=== PATIENT | male | born 1945 | race Caucasian/White ===

== ENCOUNTER 2016-07-06 07:40 | Outpatient (CLI) | payer MEDICARE, OTHER | END 2016-07-06 07:41 | disposition home or self-care (01) | DX: Z00.00 Encounter for general adult medical examination without abnormal findings (principal); R53.83 Other fatigue; E03.9 Hypothyroidism, unspecified; I10 Essential (primary) hypertension ==

== ENCOUNTER 2017-02-12 12:00 | Outpatient (CLI) | payer MEDICARE, OTHER ==
[2017-02-12 19:08] LABS: ALBUMIN/GLOBULIN RATIO 1.3 (1.0-2.2); BILIRUBIN,TOTAL 0.7 mg/dL (0.2-1.0); BUN - BLOOD UREA NITROGEN 12 mg/dL (6-20); CALCIUM 9.2 mg/dL (8.5-10.3); CARBON DIOXIDE - CO2 27 mmol/L (21-32); CHLORIDE 101 mmol/L (101-111); CHOL/HDL RATIO 2.2 (<5.0); CHOLESTEROL 166 mg/dL; CREATININE 0.9 mg/dL (0.6-1.2); GFR - MDRD 83 (>89); GLUCOSE 91 mg/dL (70-100); HDL CHOLESTEROL 77 mg/dL; POTASSIUM 4.4 mmol/L (3.5-5.0); SODIUM 140 mmol/L (135-145); TOTAL PROTEIN 7.5 g/dL (6.7-8.2); TRIGLYCERIDES 64 mg/dL; VLDL CHOLESTEROL 13 mg/dL
== END 2017-02-12 12:01 | disposition home or self-care (01) ==
LOC: LAB.F 12:00
PROVIDERS: ATTEND Family Medicine
DX: I25.10 Atherosclerotic heart disease of native coronary artery without angina pectoris (principal); I10 Essential (primary) hypertension; E78.01 Familial hypercholesterolemia
CPT/HCPCS: 36415; 80053; 80061

== ENCOUNTER 2017-03-01 10:07 | Outpatient (CLI) | payer MEDICARE, OTHER ==
[2017-03-01 18:40] LABS: CREATININE 0.9 mg/dL (0.6-1.2); POTASSIUM 4.4 mmol/L (3.5-5.0)
== END 2017-03-01 10:08 | disposition home or self-care (01) ==
LOC: LAB.F 10:07
PROVIDERS: ATTEND Internal Medicine Cardiovascular Disease
DX: I10 Essential (primary) hypertension (principal)
CPT/HCPCS: 36415; 80048

== ENCOUNTER 2017-09-26 14:39 | Outpatient (CLI) | payer MEDICARE, OTHER ==
[2017-09-26 17:46] LABS: CREATININE 0.9 mg/dL (0.6-1.2)
[2017-09-26 17:48] LABS: CALCIUM 8.7 mg/dL (8.5-10.3)
== END 2017-09-26 14:40 | disposition home or self-care (01) ==
LOC: LAB.F 14:39
PROVIDERS: ATTEND Internal Medicine Cardiovascular Disease
DX: I25.110 Atherosclerotic heart disease of native coronary artery with unstable angina pectoris (principal)
CPT/HCPCS: 36415; 80048

== ENCOUNTER 2017-11-15 10:10 | Outpatient (CLI) | payer MEDICARE, OTHER ==
[2017-11-15 18:21] LABS: CHOL/HDL RATIO 2.8 (<5.0); CHOLESTEROL 165 mg/dL; HDL CHOLESTEROL 59 mg/dL; LDL CHOLESTEROL,CALCULATED 86 mg/dL; LDL/HDL RATIO 1.5 (<3.6); VLDL CHOLESTEROL 20 mg/dL
== END 2017-11-15 10:11 | disposition home or self-care (01) ==
LOC: LAB.F 10:10
PROVIDERS: ATTEND Internal Medicine Cardiovascular Disease
DX: E78.01 Familial hypercholesterolemia (principal)
CPT/HCPCS: 36415; 80061; 83721

== ENCOUNTER 2020-06-08 14:10 | Outpatient (CLI) | payer MEDICARE, OTHER ==
--- NOTE | 2020-06-08 16:51 | XRAY Report ---
PROCEDURE: Shoulder 3 View RT INDICATIONS: RT SHOULDER PX TECHNIQUE: 3 views of the shoulder were acquired. COMPARISON: None. FINDINGS: Bones: No acute fractures or dislocations. Degenerative changes of the right glenohumeral and acrom ioclavicular joints. Coracoclavicular and acromioclavicular intervals are maintained. No suspicious b christian lesions. Visualized ribs appear intact. Soft tissues: No suspicious soft tissue calcifications. IMPRESSION: Right shoulder without acute fracture or dislocation. Degenerative changes of the right acromioclavicular and glenohumeral joints. If there is persistent clinical concern for occult fracture, consider further evaluation with advance d cross-sectional imaging such as CT or MRI. Reviewed by: Raul Ojeda MD on 06/08/2020 4:50 PM PDT Approved by: Raul Ojeda MD on 06/08/2020 4:50 PM PDT Station ID: [id number]
== END 2020-06-08 14:11 | disposition home or self-care (01) ==
LOC: DI.S 14:10
PROVIDERS: ATTEND Nurse Practitioner Family
DX: M19.011 Primary osteoarthritis, right shoulder (principal)

== ENCOUNTER 2020-08-07 10:07 | Outpatient (CLI) | payer MEDICARE, OTHER ==
--- NOTE | 2020-08-07 20:12 | CT Report ---
PROCEDURE: UPPER EXTREMITY WO - RT INDICATIONS: PAIN OF RIGHT SHOULDER JOINT TECHNIQUE: Noncontrast 3 mm axial sections acquired of the right shoulder, with coronal and sagittal reformats. COMPARISON: Shoulder plain film, 06/08/2020 FINDINGS: Image quality: Excellent. Bones: No fractures or dislocations are seen. Degenerative changes are seen in the right shoulder, w ith minimal joint space narrowing with associated spurring of the humeral head. Moderate subacromial spurring can be seen. No suspicious lytic or blastic lesions are seen. Degenerative changes are seen elsewhere, including within the visualized cervical spine and thoracic spine. Sternotomy changes are noted. Soft tissues: The visualized right lung is within normal limits. No enlarged axillary lymph nodes ar e seen. Mediastinal clips are seen. IMPRESSION: Right shoulder degenerative changes are seen. If not contraindicated, please consider a dedicated right shoulder MRI for further evaluation. Incidental note is made of: CABG Reviewed by: Osmin Parker MD on 08/07/2020 7:10 PM IVÁN Approved by: Osmin Parker MD on 08/07/2020 7:10 PM IVÁN Station ID: [id number]
== END 2020-08-07 10:08 | disposition home or self-care (01) ==
LOC: DI 10:07
PROVIDERS: ATTEND Nurse Practitioner Family
DX: M19.011 Primary osteoarthritis, right shoulder (principal)

== ENCOUNTER 2020-11-23 11:24 | Outpatient (CLI) | payer MEDICARE, OTHER ==
--- NOTE | 2020-11-23 16:07 | XRAY Report ---
PROCEDURE: Hand 3 View BILAT INDICATIONS: HAND PAIN TECHNIQUE: 3 views of the hand(s) acquired. COMPARISON: None FINDINGS: Bones: No fractures or dislocations. No suspicious bony lesions. There is diffuse appearance of moderate IP degenerative narrowing bilaterally. There is moderate to s evere left and moderate right first CMC degenerative narrowing. Minimal scattered periarticular osteo phytes are present. There are scattered areas of subchondral lucency suspected to represent subchondr al cysts. Radiocarpal narrowing is noted bilaterally. Soft tissues: No suspicious soft tissue calcif ications. IMPRESSION: Bilateral arthritic changes as above. Reviewed by: Charu Raphael MD on 11/23/2020 4:06 PM PDT Approved by: Charu Raphael MD on 11/23/2020 4:06 PM PDT Station ID: [id number]
== END 2020-11-23 11:25 | disposition home or self-care (01) ==
LOC: DI.S 11:24
PROVIDERS: ATTEND Internal Medicine
DX: M19.042 Primary osteoarthritis, left hand (principal); M19.041 Primary osteoarthritis, right hand

== ENCOUNTER 2021-02-18 10:51 | Outpatient (CLI) | payer MEDICARE, OTHER ==
--- NOTE | 2021-02-18 13:27 | XRAY Report ---
PROCEDURE: Shoulder 3 View RT INDICATIONS: INJURY OF TENDON OF THE ROTATOR CUFF OF SHOULDER-R TECHNIQUE: 3 views of the shoulder were acquired. COMPARISON: None. FINDINGS: Mild glenohumeral joint space narrowing. Moderate degenerative changes of the acromioclavicular joint . A mildly high riding humeral head may indicate rotator cuff atrophy due to chronic tear. There is n o fracture or dislocation. No suspicious lytic or blastic osseous lesion. Included portions of the ri ght lung are clear. Regional soft tissues unremarkable. IMPRESSION: Moderate acromioclavicular degenerative changes. Mild glenohumeral degenerative changes. Mildly high riding humeral head which may indicate rotator cuff tear. Reviewed by: Isaac Larson MD on 02/18/2021 1:26 PM PST Approved by: Isaac Larson MD on 02/18/2021 1:26 PM [facility] Station ID: [id number]
== END 2021-02-18 10:52 | disposition home or self-care (01) ==
LOC: DI.S 10:51
PROVIDERS: ATTEND Internal Medicine
DX: M19.011 Primary osteoarthritis, right shoulder (principal)

== ENCOUNTER 2022-09-01 19:22 | Outpatient (CLI) | payer MEDICARE, OTHER | END 2022-09-01 19:23 | disposition critical access hospital (66) | LOC: EMS 19:22 | DX: S06.9X1A Unspecified intracranial injury with loss of consciousness of 30 minutes or less, initial encounter (principal); R51.9 Headache, unspecified; S01.511A Laceration without foreign body of lip, initial encounter; W01.0XXA Fall on same level from slipping, tripping and stumbling without subsequent striking against object, initial encounter; Y92.480 Sidewalk as the place of occurrence of the external cause | CPT/HCPCS: A0425; A0429 ==

== ENCOUNTER 2022-09-01 19:31 | Emergency (ER) | payer MEDICARE, OTHER ==
[2022-09-01] MEDS ORDERED: BUFFERED LIDOCAINE 10 ML SYRINGE SUBQ STA (19:38)
[2022-09-01] MEDS ORDERED: TETANUS/DIPHTHERIA/PERTUSSIS 0.5 ML SYRINGE IM ONE (19:39)
--- NOTE | 2022-09-01 19:40 | ED Physician Documentation ---
PD HPI HEAD INJURY - Chief complaint Chief Complaint: Trauma Hd/Nk - History obtained from History obtained from: Patient, EMS - Additional information Additional information: 76-year-old gentleman with history of dementia and CABG presents after a ground- level fall. He is a poor historian due to the dementia. Reportedly had a trip and fall. He does smell of alcohol. He does not remember the accident. PD PAST MEDICAL HISTORY - Past Medical History Cardiovascular: Hypertension, High cholesterol Musculoskeletal: Gout - Past Surgical History Past Surgical History: No - Present Medications Home Medications: Ambulatory Orders Medication Instructions Recorded Confirmed Aspirin [Aspir 81] 162 mg PO DAILY 12/19/13 12/19/13 Atenolol 50 mg PO DAILY 12/19/13 12/19/13 Colchicine [Colcrys] PRN 12/19/13 12/19/13 HYDROcod/ACETAM 5/325 [Vicodin 1 - 2 ea PO Q6H PRN #15 tablet 12/19/13 5/325] Ranitidine HCl 75 mg PO DAILY 12/19/13 12/19/13 Rosuvastatin Calcium [Crestor] 40 mg PO DAILY 12/19/13 12/19/13 - Allergies Allergies/Adverse Reactions: Allergies Allergy/AdvReac Type Severity Reaction Status Date / Time No Known Drug Allergies Allergy Verified 09/01/22 19:38 - Social History Does the pt smoke?: No Smoking Status: Never smoker Does the pt drink ETOH?: Yes Does the pt have substance abuse?: No - Immunizations Immunizations are current?: Yes - POLST Patient has POLST: No PD ED PE NORMAL - Vitals Vital signs reviewed: Yes - General General: No acute distress, Other (He is alert and oriented to person and place but not time or events) - HEENT HEENT: PERRL, EOMI, Other (There is a laceration in the right upper lip not crossing the vermilion border.) - Neck Neck: No bony TTP (But maintained in a c-collar pending imaging) - Cardiac Cardiac: RRR, No murmur - Respiratory Respiratory: No respiratory distress, Clear bilaterally - Abdomen Abdomen: Normal bowel sounds, Soft, Non tender - Back Back: No CVA TTP - Derm Derm: Normal color, Warm and dry - Extremities Extremities: Other (Small shallow scrapes to the dorsum of the right hand. There is a larger scrape on the posterolateral right elbow with some tenderness. No limited range of motion.) - Neuro Eye Opening: Spontaneous Motor: Obeys Commands Verbal: Confused GCS Score: 14 Results - Vitals Vitals: Vital Signs - 24 hr 09/01/22 09/01/22 09/01/22 19:35 19:56 21:31 Temperature 36.6 C 37 C Heart Rate 78 77 Respiratory 18 22 20 Rate Blood Pressure 117/75 117/75 117/72 O2 Saturation 97 97 Oxygen O2 Source Room air - EKG (time done) 1933 EKG releavant findings:: EKG personally interpreted by author of this note. Relevant findings are: Rate: Rate (enter#) (77) Rhythm: NSR [place]: Normal Intervals: Normal NM QRS: Normal Ischemia: Normal ST segments - Labs Labs: Laboratory Tests 09/01/22 09/01/22 09/01/22 19:50 19:50 19:50 WBC 7.7 RBC 3.52 L Hgb 12.2 L Hct 35.9 L MCV 102.0 H MCH 34.7 H MCHC 34.0 RDW 12.6 Plt Count 199 MPV 9.0 Neut # (Auto) 3.1 Lymph # (Auto) 3.7 H Sharp # (Auto) 0.7 Eos # (Auto) 0.1 Baso # (Auto) 0.1 Absolute Nucleated RBC 0.00 Nucleated RBC % 0.0 PT 10.7 INR 1.0 Sodium 135 Potassium 4.0 Chloride 100 L Carbon Dioxide 26 Anion Gap 9.0 BUN 10 Creatinine 0.8 Estimated GFR (MDRD) 94 Glucose 102 H Calcium 8.8 Total Bilirubin 0.3 AST 27 ALT 14 Alkaline Phosphatase 36 L Total Protein 7.2 Albumin 3.9 Globulin 3.3 Albumin/Globulin Ratio 1.2 Ethyl Alcohol 227.0 - Rads (name of study) CTH/Cspine Relevant Findings:: Final report received (CT of the head and cervical spine are without serious acute traumatic injuries. He does have degenerative changes in the neck and a right periorbital scalp hematoma.), EMP independent interpretation of test CT of the facial bones is without fracture. Relevant Findings:: Final report received, EMP independent interpretation of test X-ray of the right elbow demonstrates a hairline fracture of the distal humerus Relevant Findings:: Final report received, EMP independent interpretation of test Procedures - Laceration (location) R upper lip Length in cm: 1 Wound type: Stellate Anesthesia: Lidocaine 1%, With bicarb Wound preparation: Irrigated copiously NS Deep layer closure: Vicryl (3-0 single buried) Other: Tetanus booster given - Splint (location) - Minor RUE Splint applied by: Physician Type of splint: Fiberglass, Long arm, Posterior Other: Patient tolerated well, No complications, Neurovascular intact, Sling provided PD Medical Decision Making - ED course Complexity details: reviewed results (Labs reviewed and CBC is notable for mild anemia. Prior values from 6 years ago, he is dropped about 1.4 g. INR normal. CMP unremarkable. Blood alcohol 227 consistent with intoxication.) ED course: 76yo male after GLF. + EtOH, (sober) at [facility]. Updated with results. RUE posterior splint/sling and ortho f/u Departure - Departure Disposition: Home, Self Care Clinical Impression: Ground-level fall Alcohol intoxication Qualifiers: Complication of substance-induced condition: uncomplicated Qualified Code(s): F10.920 - Alcohol use, unspecified with intoxication, uncomplicated Facial abrasion Qualifiers: Encounter type: initial encounter Qualified Code(s): S00.81XA - Abrasion of other part of head, initial encounter Lip laceration Qualifiers: Encounter type: initial encounter Qualified Code(s): S01.511A - Laceration without foreign body of lip, initial encounter Abrasion of right elbow Qualifiers: Encounter type: initial encounter Qualified Code(s): S50.311A - Abrasion of right elbow, initial encounter Humerus distal fracture Qualifiers: Encounter type: initial encounter Fracture type: closed Condition: Good Record reviewed to determine appropriate education?: Yes Instructions: ED Fx Upper Ext, ED Laceration Mouth Follow-Up: Orthopedic Care [Provider Group] - Within 1 week Comments: Jared was seen tonight after a ground-level fall while intoxicated. CAT scan of the head, cervical spine, and facial bones demonstrates no fractures or concerning head injury there. He does have a distal humerus fracture on the right. Keep the splint and sling in place and dry until you follow-up with the orthopedist. Call Sunday for next available appointment. Avoid alcohol, his blood alcohol level was 227 here. 80 would be the cutoff for driving for reference. For the abrasions, soap and water is fine and then keep them greasy with Vaseline ointment. Please return tomorrow for reevaluation if there are any concerns noting that he is intoxicated now so missed injuries are a possibility. He should stay with a sober individual tonight and not drive for the next 24 hours. Discharge Date/Time: 09/01/22 21:32
[2022-09-01 19:58] LABS: BASOPHILS # (AUTO) 0.1 10^3/uL (0.0-0.1); BASOPHILS % (AUTO) 0.8 %; EOSINOPHILS # (AUTO) 0.1 10^3/uL (0.0-0.7); EOSINOPHILS % (AUTO) 1.4 %; HCT - HEMATOCRIT 35.9 % (42.0-52.0); HGB - HEMOGLOBIN 12.2 g/dL (14.0-18.0); LYMPHOCYTES # (AUTO) 3.7 10^3/uL (1.5-3.5); LYMPHOCYTES % (AUTO) 48.1 %; MEAN CORPUSCULAR HEMOGLOBIN 34.7 pg (27.0-31.0); MONOCYTES # (AUTO) 0.7 10^3/uL (0.0-1.0); MONOCYTES % (AUTO) 9.1 %; NEUTROPHILS # (AUTO) 3.1 10^3/uL (1.5-6.6); NEUTROPHILS % (AUTO) 40.3 %; PLT - PLATELET COUNT 199 10^3/uL (130-450); RED BLOOD COUNT 3.52 10^6/uL (4.70-6.10); RED CELL DISTRIBUTION WIDTH 12.6 % (12.0-15.0); WHITE BLOOD COUNT 7.7 x10^3/uL (4.8-10.8)
[2022-09-01 20:06] LABS: PT - PROTHROMBIN TIME 10.7 secs (9.9-12.6)
[2022-09-01 20:08] LABS: ALBUMIN 3.9 g/dL (3.2-5.5); ALBUMIN/GLOBULIN RATIO 1.2 (1.0-2.2); BILIRUBIN,TOTAL 0.3 mg/dL (0.2-1.0); CALCIUM 8.8 mg/dL (8.5-10.3); CREATININE 0.8 mg/dL (0.6-1.2); TOTAL PROTEIN 7.2 g/dL (6.7-8.2)
[2022-09-01] MEDS ORDERED: KETOROLAC 15 MG/ML VIAL IVP STA (20:19)
--- NOTE | 2022-09-01 20:39 | CT Report ---
PROCEDURE: CERVICAL SPINE WO INDICATIONS: Fall with head/face inj TECHNIQUE: Noncontrast 3 mm thick sections acquired from the skull base to the T4 level. Sagittal and coronal r eformats were then constructed. For radiation dose reduction, the following was used: automated exp osure control, adjustment of mA and/or kV according to patient size. COMPARISON: Correlation is made with the accompanying CT examinations. FINDINGS: Image quality: Excellent. Bones: No fractures or dislocations. Visualized superior ribs are intact. Moderate disc space narrowing can be seen at C4-C5 and C5-C6. Endplate irregularity and sclerosis are seen, which are worst at C5-C6. Posteriorly directed endplate osteophytes can be seen at C5-C6. Mild er degenerative changes are seen elsewhere. Soft tissues: Prevertebral soft tissues are normal in thickness. No paravertebral hematomas. No ap ical pneumothoraces. Dense atherosclerotic calcification can be seen. IMPRESSION: Negative for displaced fracture. Degenerative changes are seen, which are worst at C5-C6. Reviewed by: Osmin Parker MD on 09/01/2022 7:38 PM IVÁN Approved by: Osmin Parker MD on 09/01/2022 7:38 PM IVÁN Station ID: [id number]
--- NOTE | 2022-09-01 20:41 | CT Report ---
PROCEDURE: HEAD WO INDICATIONS: Fall with head/face inj TECHNIQUE: Noncontrast 4.5 mm thick angled axial sections acquired from the foramen magnum to the vertex. For r adiation dose reduction, the following was used: automated exposure control, adjustment of mA and/or kV according to patient size. COMPARISON: Correlation is made with the accompanying CT examinations. FINDINGS: Image quality: Excellent. CSF spaces: Basal cisterns are patent. No extra-axial fluid collections. Ventricles are normal in size and shape. Brain: No midline shift. No intracranial masses or hemorrhage. Recinos-white matter interface is norm al. Age-appropriate brain parenchymal volume loss and chronic small vessel ischemic change can be se en. Skull and face: Soft tissue swelling can be seen involving the right periorbital region. No regional fracture is seen. Calvarium and visualized facial bones are intact, without suspicious lesions. Sinuses: Visualized sinuses and mastoids are clear. IMPRESSION: Right periorbital soft tissue swelling, without a fracture seen. No intracranial hemorrhage is seen. No significant intracranial abnormality is seen. Reviewed by: Osmin Parker MD on 09/01/2022 7:40 PM IVÁN Approved by: Osmin Parker MD on 09/01/2022 7:40 PM IVÁN Station ID: [id number]
--- NOTE | 2022-09-01 20:42 | CT Report ---
PROCEDURE: MAXILLOFACIAL WO INDICATIONS: Fall with head/face inj TECHNIQUE: Noncontrast 1.5 mm thick axial images acquired from the mandible through the frontal sinuses, with co yolanda and sagittal reformatting. For radiation dose reduction, the following was used: automated ex posure control, adjustment of mA and/or kV according to patient size. COMPARISON: Correlation is made with the accompanying CT examinations. FINDINGS: Image quality: Excellent. Bones and teeth: Orbital westfall are intact. Sinus westfall show no fracture or deformity. Nasal bones and septum are intact. Visualized portions of the mandible demonstrate no fractures or subluxation. Zygomatic arches are intact. Pterygoid plates are intact. Visualized portions of the skull base an d auditory canals are intact. Sinuses: Paranasal sinuses are aerated, without fluid levels, mucosal thickening, or mucoceles. Mas toid air cells are aerated. Soft tissues: There is soft tissue swelling seen involving the right periorbital region. No radiopaqu e foreign body is seen. No drainable fluid collection is seen. Vascular: Atherosclerotic calcification is seen. Visualized vascular structures appear normal in the absence of contrast. Bony vascular foramina and canals are intact. IMPRESSION: Negative for displaced fracture. Focal right periorbital soft tissue swelling noted. Reviewed by: Osmin Parker MD on 09/01/2022 7:41 PM IVÁN Approved by: Osmin aPrker MD on 09/01/2022 7:41 PM IVÁN Station ID: [id number]
--- NOTE | 2022-09-01 20:47 | XRAY Report ---
PROCEDURE: Elbow 3 View RT INDICATIONS: elbow inj TECHNIQUE: 3 views of the elbow were acquired. COMPARISON: Correlation is made with the accompanying CT examinations. FINDINGS: The study is limited by nonstandard positioning. Bones: Minimally displaced fracture lines can be seen involving the distal medial humerus. Age-appropriate degenerative changes are seen. Soft tissues: There is a likely mild effusion. No suspicious soft tissue calcifications or masses. IMPRESSION: Minimally displaced distal humerus fracture lines seen medially. If it would be helpful for clinical management decision making, please consider a dedicated CT for fu rther evaluation. Reviewed by: Osmin Parker MD on 09/01/2022 7:45 PM IVÁN Approved by: Osmin Parker MD on 09/01/2022 7:45 PM IVÁN Station ID: [id number]
[2022-09-01 21:34] VITALS: BP 117/72
== END 2022-09-01 21:32 | disposition home or self-care (01) ==
LOC: ED 19:31
DX: S01.511A Laceration without foreign body of lip, initial encounter (principal); W18.30XA Fall on same level, unspecified, initial encounter; F10.920 Alcohol use, unspecified with intoxication, uncomplicated; F03.90 Unspecified dementia, unspecified severity, without behavioral disturbance, psychotic disturbance, mood disturbance, and anxiety; I10 Essential (primary) hypertension; Z95.1 Presence of aortocoronary bypass graft; Z79.82 Long term (current) use of aspirin; Z23 Encounter for immunization; Z71.85 Encounter for immunization safety counseling
CPT/HCPCS: 12011; 29105; 36415; 70450; 70486; 72125; 73080; 80053; 85025; 85610; 90471; 90715; 93005; 96374; 99284; G0480; 80320

== ENCOUNTER 2022-09-11 10:00 | Outpatient (CLI) | payer MEDICARE, OTHER ==
--- NOTE | 2022-09-11 14:43 | XRAY Report ---
PROCEDURE: Elbow 3 View RT INDICATIONS: RIGHT ELBOW FRACTURE TECHNIQUE: 3 views of the elbow were acquired. COMPARISON: 09/01/2022 FINDINGS: Bones: Previously demonstrated minimally displaced humeral medial condyle fracture is similar in ali gnment. Fracture planes are less conspicuous than before. Soft tissues: Mild effusion. No suspicious soft tissue calcifications. IMPRESSION: Similar alignment of previously demonstrated humeral medial condyle fracture. Reviewed by: Flavio Maxwell MD on 09/11/2022 2:41 PM PDT Approved by: Flavio Maxwell MD on 09/11/2022 2:41 PM PDT Station ID: [id number]
== END 2022-09-11 23:59 | disposition home or self-care (01) ==
LOC: DI.WOS 10:00
PROVIDERS: ATTEND Orthopaedic Surgery Sports Medicine
DX: S42.461D Displaced fracture of medial condyle of right humerus, subsequent encounter for fracture with routine healing (principal)

== ENCOUNTER 2022-12-18 14:07 | Outpatient (CLI) | payer MEDICARE, OTHER ==
[2022-12-18 14:23] LABS: BASOPHILS # (AUTO) 0.1 10^3/uL (0.0-0.1); BASOPHILS % (AUTO) 0.8 %; EOSINOPHILS # (AUTO) 0.1 10^3/uL (0.0-0.7); EOSINOPHILS % (AUTO) 1.4 %; HCT - HEMATOCRIT 37.9 % (42.0-52.0); HGB - HEMOGLOBIN 12.6 g/dL (14.0-18.0); LYMPHOCYTES # (AUTO) 2.3 10^3/uL (1.5-3.5); LYMPHOCYTES % (AUTO) 29.3 %; MEAN CORPUSCULAR HEMOGLOBIN 34.3 pg (27.0-31.0); MEAN CORPUSCULAR HGB CONC 33.2 g/dL (32.0-36.0); MEAN CORPUSCULAR VOLUME 103.3 fL (80.0-94.0); MEAN PLATELET VOLUME 9.5 fL (7.4-11.4); MONOCYTES # (AUTO) 0.7 10^3/uL (0.0-1.0); MONOCYTES % (AUTO) 9.3 %; NEUTROPHILS # (AUTO) 4.6 10^3/uL (1.5-6.6); NEUTROPHILS % (AUTO) 59.1 %; PLT - PLATELET COUNT 239 10^3/uL (130-450); RED BLOOD COUNT 3.67 10^6/uL (4.70-6.10); RED CELL DISTRIBUTION WIDTH 11.9 % (12.0-15.0); WHITE BLOOD COUNT 7.9 x10^3/uL (4.8-10.8)
[2022-12-18 14:53] LABS: CRP - C-REACTIVE PROTEIN < 0.5 mg/dL (<0.5)
[2022-12-18 15:10] LABS: FERRITIN 170.3 ng/mL (23.9-336.2)
== END 2022-12-18 14:08 | disposition home or self-care (01) ==
LOC: LAB 14:07
PROVIDERS: ATTEND Internal Medicine
DX: F03.90 Unspecified dementia, unspecified severity, without behavioral disturbance, psychotic disturbance, mood disturbance, and anxiety (principal); K13.79 Other lesions of oral mucosa; R59.1 Generalized enlarged lymph nodes
CPT/HCPCS: 36415; 82607; 82728; 85025; 85651; 86140

== ENCOUNTER 2022-12-26 11:52 | Outpatient (CLI) | payer MEDICARE, OTHER ==
--- NOTE | 2022-12-26 13:17 | Ultrasound Report ---
PROCEDURE: Head or Neck Soft Tissue INDICATIONS: LYMPHADENOPATHY TECHNIQUE: Real-time scanning was performed of the thyroid gland, with image documentation. COMPARISON: CT Max face on September 01, 2022 FINDINGS: Right submandibular area of lump demonstrates a complex cystic lesion with peripheral vascularity monty suring 4.4 x 2.3 x 2.9 cm. This is excluded from the [id number] on prior CT max face dated August. IMPRESSION: Right submandibular complex cystic lesion with peripheral vascularity measuring 4.4 x 2.3 x 2.9 cm. D ifferential includes malignancy, infection and dermoid cyst. - Recommend FNA/tissue sampling and/or contrast enhanced CT of the neck for further evaluation. Reviewed by: Javon Wallis MD on 12/26/2022 1:16 PM PDT Approved by: Javon Wallis MD on 12/26/2022 1:16 PM PDT Station ID: [id number]
== END 2022-12-26 11:53 | disposition home or self-care (01) ==
LOC: DI 11:52
PROVIDERS: ATTEND Internal Medicine
DX: M27.40 Unspecified cyst of jaw (principal)

== ENCOUNTER 2023-01-18 10:59 | Outpatient (CLI) | payer MEDICARE, OTHER ==
[2023-01-18] MEDS ORDERED: iohexoL-300 100 ML VIAL IVP ONE (15:12)
--- NOTE | 2023-01-18 16:26 | CT Report ---
PROCEDURE: SOFT TISSUE NECK W INDICATIONS: NECK MASS CONTRAST: Omni 300 100ml TECHNIQUE: After the administration of intravenous contrast, 3.0 mm axial sections acquired from the sella to th e aortic arch. Additional oblique axial 3.0 mm sections acquired through the pharynx. 3 mm thick co yolanda reformats were generated. For radiation dose reduction, the following was used: automated exp osure control, adjustment of mA and/or kV according to patient size. COMPARISON: Correlation is made with ultrasound, 12/26/2022. Correlation is also made with cervical spine CT, 10/01/2022. FINDINGS: Image quality: Excellent. Lymph nodes: At the site of palpable concern, on the right at level 2A, there is a solid mixed densi ty lesion seen along the inferomedial aspect of the right parotid gland. In greatest axial dimensions , this measures 2.2 x 2.6 cm, with a craniocaudal extent of 3.9 cm. No definite additional enlarged l ymph nodes are seen. Vessels: Visualized vasculature appears patent. Focal atherosclerotic calcification with irregularit y can be seen involving the carotid bifurcation regions, with approximately 60% narrowing on the left at approximately 50% narrowing on the right. Neck spaces: There is a peritonsillar region mass seen, with mild enhancement, as on series 2 image 35, measuring 3.3 x 3.3 cm in greatest axial dimension, with a craniocaudal extent of 3.3 cm. Mass ef fect can be seen upon the soft palate with, with deviation of the uvula to the left. There is mild na rrowing of the oropharynx. No additional mucosal lesions are seen. Glands: The above described lesion can be seen adjacent to the inferior pole of the right parotid, w ith mass effect upon it. It is believed to originate outside of the parotid itself. No definite addit ional parotid lesions can be seen on either side. The submandibular glands appear normal. The thyroid is normal in size and there are no incidental fi ndings. Miscellaneous: Visualized brain and orbits appear normal. Lung apices appear clear. Superficial so ft tissues appear normal. Bones: No suspicious bony lesions. Visualized sinuses and mastoids appear unremarkable. Moderate c ervical spine degenerative change is seen, which is worst at the C5-C6 level. IMPRESSION: There is a 3.3 cm mass seen involving the right peritonsillar region. Primary neoplasm is suspected. There is a mixed density lesion seen adjacent to the inferior pole of the right thyroid. 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 ENT consultation is recommended. Additional findings: Bilateral carotid bifurcation region atherosclerotic calcification, with narrowing Moderate cervical spine degenerative change Reviewed by: Osmin Parker MD on 01/18/2023 3:25 PM AKST Approved by: Osmin Parker MD on 01/18/2023 3:25 PM AKST Station ID: [id number]
== END 2023-01-18 11:00 | disposition home or self-care (01) ==
LOC: DI 10:59
PROVIDERS: ATTEND Internal Medicine
DX: R22.1 Localized swelling, mass and lump, neck (principal); I65.23 Occlusion and stenosis of bilateral carotid arteries; M47.812 Spondylosis without myelopathy or radiculopathy, cervical region
CPT/HCPCS: 36415; 70491; 82565; Q9967